=== PATIENT | male | born 1970 | race Caucasian/White ===

== ENCOUNTER 2019-05-15 17:31 | Emergency (ER) | payer BC ==
[2019-05-15] MEDS ORDERED: ONDANSETRON HCL INJ/PF 4 MG/2 ML SDV IV ONE (18:04)
--- NOTE | 2019-05-15 18:06 | ER Document Report ---
ED Medical Screen (RME) - General Chief Complaint: Chest Pain Stated Complaint: CHEST PAIN Time Seen by Provider: 05/15/19 18:01 Mode of Arrival: Wheelchair Information source: Patient Notes: Patient presents complaining of chest pain for the past 2 weeks it worsened today. Patient does complain of difficulty breathing due to the tenderness. Patient also reports nausea and dizziness. Patient denies any cough. Patient took 4 baby aspirins at home before arrival. hx: Hypertension, depression I have greeted and performed a rapid initial assessment of this patient. A comprehensive ED assessment and evaluation of the patient, analysis of test results and completion of the medical decision making process will be conducted by additional ED providers. TRAVEL OUTSIDE OF THE [place] IN LAST 30 DAYS: No - Related Data Allergies/Adverse Reactions: acetaminophen Allergy (Verified 05/15/19 17:33) Past Medical History - Social History Chew tobacco use (# tins/day): No Frequency of alcohol use: Social Renal/ Medical History: Denies: Hx Peritoneal Dialysis Physical Exam - Vital signs Vitals: Temp Pulse Resp BP Pulse Ox 97.9 F 74 18 151/105 H 97 05/15/19 17:43 05/15/19 17:43 05/15/19 17:43 05/15/19 17:43 05/15/19 17:43 - General General appearance: Alert, Anxious Notes: Patient with midsternal tenderness and epigastric pain. Patient with tenderness to epigastric area with palpation. Tenderness increases with inspiration Course - Vital Signs Vital signs: Temp Pulse Resp BP Pulse Ox 97.9 F 74 18 151/105 H 97 05/15/19 17:43 05/15/19 17:43 05/15/19 17:43 05/15/19 17:43 05/15/19 17:43
--- NOTE | 2019-05-15 18:39 | RADIOLOGY REPORT (SQ) ---
EXAM DESCRIPTION: CHEST 2 VIEWS COMPLETED DATE/TIME: 05/15/2019 6:31 pm REASON FOR STUDY: cp COMPARISON: None. EXAM PARAMETERS: NUMBER OF VIEWS: two views TECHNIQUE: Digital Frontal and Lateral radiographic views of the chest acquired. RADIATION DOSE: NA LIMITATIONS: none FINDINGS: LUNGS AND PLEURA: No opacities, masses or pneumothorax. No pleural effusion. MEDIASTINUM AND HILAR STRUCTURES: No masses or contour abnormalities. HEART AND VASCULAR STRUCTURES: Heart normal size. No evidence for failure. BONES: No acute findings. HARDWARE: None in the chest. OTHER: No other significant finding. IMPRESSION: NO ACUTE RADIOGRAPHIC FINDING IN THE CHEST. TECHNICAL DOCUMENTATION: JOB ID: [id number] SPO- All Rights Reserved Reading location - IP/workstation name: [email or web address]
[2019-05-15 19:04] LABS: ABSOLUTE BASOPHILS # (AUTO) 0.1 10^3/uL (0.0-0.2); ABSOLUTE EOSINOPHILS # (AUTO) 0.4 10^3/uL (0.0-0.6); ABSOLUTE MONOCYTES (AUTO) 0.4 10^3/uL (0.1-1.4); ABSOLUTE NEUT (AUTO) 5.2 10^3/uL (1.7-8.2); BASOPHILS % (AUTO) 0.7 % (0-2); EOSINOPHILS % (AUTO) 4.6 % (0-6); HEMATOCRIT 44.4 % (37.9-51.0); HEMOGLOBIN 15.6 g/dL (13.5-17.0); LYMPHOCYTES % (AUTO) 24.4 % (13-45); MEAN CORPUSCULAR HEMOGLOBIN 32.4 pg (27.0-33.4); MEAN CORPUSCULAR HGB CONC 35.2 g/dL (32.0-36.0); MEAN CORPUSCULAR VOLUME 92 fl (80-97); MONOCYTES % (AUTO) 4.9 % (3-13); PLATELET COUNT 341 10^3/uL (150-450); RED BLOOD COUNT 4.83 10^6/uL (4.35-5.55); RED CELL DISTRIBUTION WIDTH 13.4 % (11.5-14.0); SEGMENTED NEUTROPHILS % (AUTO) 65.4 % (42-78); TOTAL CELLS COUNTED % (AUTO) 100 %
--- NOTE | 2019-05-15 19:15 | EKG REPORT ---
SEVERITY:- NORMAL ECG - SINUS RHYTHM : Confirmed by: Aida Prince MD 15-May-2019 19:15:00
[2019-05-15 19:27] LABS: ALANINE AMINOTRANSFERASE 36 U/L (21-72); ALBUMIN 4.1 g/dL (3.5-5.0); ALKALINE PHOSPHATASE 113 U/L (38-126); ANION GAP 7 (5-19); ASPARTATE AMINO TRANSFERASE 32 U/L (17-59); BILIRUBIN,DIRECT 0.3 mg/dL (0.0-0.4); BILIRUBIN,TOTAL 0.7 mg/dL (0.2-1.3); BLOOD UREA NITROGEN 13 mg/dL (7-20); CALCIUM 9.3 mg/dL (8.4-10.2); CARBON DIOXIDE 29 mmol/L (22-30); CHLORIDE 103 mmol/L (98-107); GLUCOSE 101 mg/dL (75-110); LIPASE 127.7 U/L (23-300); POTASSIUM 4.7 mmol/L (3.6-5.0); SODIUM 138.9 mmol/L (137-145)
[2019-05-15] MEDS ORDERED: FAMOTIDINE 20 MG TABLET PO ONE (23:35)
[2019-05-15] MEDS ORDERED: SUCRALFATE 1 GM TABLET PO ONE (23:36)
[2019-05-15] MEDS ORDERED: METOCLOPRAMIDE HCL ORAL SOLN 10 MG/10 ML UDCUP PO ONE (23:36)
[2019-05-15] MEDS ORDERED: LIDOCAINE 2% VISCOUS SOLN 20 ML UDCUP PO ONE (23:36)
[2019-05-15] MEDS ORDERED: MAG HYDROX/AL HYDROX/SIMETH SUSP 30 ML UDCUP PO ONE (23:36)
--- NOTE | 2019-05-15 23:40 | ER Document Report ---
ED General - General Chief Complaint: Chest Pain Stated Complaint: CHEST PAIN Time Seen by Provider: 05/15/19 18:01 Primary Care Provider: STEVE FERMIN MD [Primary Care Provider] - Follow up in 3-5 days Mode of Arrival: Wheelchair Notes: Patient is a 49-year-old male with past medical history of essential hypertension, obesity, presents with complaints of 2 weeks of chest discomfort. Describes it as a constant, throbbing, burning discomfort to his upper abdomen and lower sternal region. Regarded as severe in nature. States that the pain sometimes makes it difficult for him to sleep. Not improved by anything. Has been worsening since onset and eventually the pain prompted him to come to the emergency department this evening. Denies history of similar symptoms prior to the past 2 weeks. Has not seen his primary care doctor regarding today's concerns. Denies history of DVT or pulmonary embolus. Denies any associated shortness of breath or pleuritic discomfort. Intermittent he nauseated. Denies any history of coronary artery disease. Has never had a stress test or cardiac catheterization. TRAVEL OUTSIDE OF THE [place] IN LAST 30 DAYS: No - Related Data Allergies/Adverse Reactions: acetaminophen Allergy (Verified 05/15/19 17:33) Past Medical History - General Information source: Patient - Social History Smoking Status: Never Smoker Chew tobacco use (# tins/day): No Frequency of alcohol use: Social Drug Abuse: None Lives with: Spouse/Significant other Family History: Reviewed & Not Pertinent Patient has suicidal ideation: No Patient has homicidal ideation: No - Past Medical History Cardiac Medical History: Reports: Hx Hypertension Renal/ Medical History: Denies: Hx Peritoneal Dialysis Psychiatric Medical History: Reports: Hx Depression Review of Systems - Review of Systems Notes: Constitutional: Negative for fever. HENT: Negative for sore throat. Eyes: Negative for visual changes. Cardiovascular: Positive for chest pain. Respiratory: Negative for shortness of breath. Gastrointestinal: Positive for upper abdominal pain and nausea Genitourinary: Negative for dysuria. Musculoskeletal: Negative for back pain. Skin: Negative for rash. Neurological: Negative for headaches, weakness or numbness. 10 point ROS negative except as marked above and in HPI. Physical Exam - Vital signs Vitals: Temp Pulse Resp BP Pulse Ox 97.9 F 74 18 151/105 H 97 05/15/19 17:43 05/15/19 17:43 05/15/19 17:43 05/15/19 17:43 05/15/19 17:43 Interpretation: Hypertensive Notes: PHYSICAL EXAMINATION: GENERAL: Well-appearing, well-nourished and in no acute distress. HEAD: Atraumatic, normocephalic. EYES: Pupils equal round and reactive to light, extraocular movements intact, sclera anicteric, conjunctiva are normal. ENT: nares patent, oropharynx clear without exudates. Moist mucous membranes. NECK: Normal range of motion, supple without lymphadenopathy LUNGS: Breath sounds clear to auscultation bilaterally and equal. No wheezes rales or rhonchi. HEART: Regular rate and rhythm without murmurs ABDOMEN: Soft, mild epigastric abdominal tenderness, normoactive bowel sounds. No guarding, no rebound. No masses appreciated. EXTREMITIES: Normal range of motion, no pitting or edema. No cyanosis. NEUROLOGICAL: No focal neurological deficits. Moves all extremities spontaneously and on command. PSYCH: Normal mood, normal affect. SKIN: Warm, Dry, normal turgor, no rashes or lesions noted. Course - Re-evaluation Re-evalutation: 05/15/19 23:39 Presentation of chest pain in an otherwise well appearing patient. Low clinical suspicion for ACS given clinical history, exam, EKG without ST elevations or depressions, and negative initial troponin. Patient has had continuous chest pain for greater than 2 weeks. HEART score less than or equal to 3. PE also seems unlikely given clinical history, absence of tachycardia or dyspnea. Patient is PERC criteria negative. CXR without evidence of pneumothorax or pneumonia. No widened mediastinum. Aortic dissection also seems unlikely given history, symmetric pulses, CXR, and vitals. Delta troponin remains normal. Patient's symptoms may be esophageal in origin as most of his discomfort is re producible on palpation of his epigastrium and he does have significant dietary indiscretions that could contribute to this. I have been clear to emphasize with the patient that this is not a definitive diagnosis but we will empirically treat with famotidine and Carafate to see if this does improve his symptoms. We have also reviewed the need for weight loss as well as a sleep study as patient appears to have obstructive sleep apnea based on characterization of his significant other at the bedside. HEART Score: History0 ECG0 Age1 Risk Factors1 Troponin0 Total: 2 Chest pain in a patient without evidence of cardiac or other serious etiology on workup today. I discussed with patient that, based on their age, risk factors and emergency department testing today, the likelihood that their symptoms are related to a heart attack is very low (estimated risk of heart attack or over the next 30 days of less than 1%). The patient demonstrates decision making capacity and has verbalized an understanding of these risks to me. Based on this, the patient has chosen to follow-up as an outpatient. Usual chest pain return precautions reviewed. The patient states understanding and agreement with this plan. - Vital Signs Vital signs: Temp Pulse Resp BP Pulse Ox 97.9 F 69 13 130/72 H 93 05/15/19 17:43 05/15/19 21:11 05/15/19 23:40 05/15/19 23:40 05/15/19 23:40 - Laboratory Result Diagrams: 05/15/19 17:46 05/15/19 17:46 - Diagnostic Test Radiology reviewed: Image reviewed, Reports reviewed Radiology results interpreted by me: 05/15/19 23:38 Chest x-ray: No acute infiltrate or pneumothorax - EKG Interpretation by Me Additional EKG results interpreted by me: 05/15/19 23:38 Sinus rhythm, rate 77, no ST elevations or depressions. QTC 440. Discharge - Discharge Clinical Impression: Obstructive sleep apnea Chest pain Qualifiers: Chest pain type: unspecified Qualified Code(s): R07.9 - Chest pain, unspecified Obesity Qualifiers: Obesity type: due to excess calories Obesity classification: unspecified obesity classification Serious obesity comorbidity presence: with serious comorbidity Qualified Code(s): E66.09 - Other obesity due to excess calories Condition: Stable Disposition: HOME, SELF-CARE Additional Instructions: You were seen today for chest pain. The exact cause of your pain is unclear. However, based on your cardiac enzyme testing, chest x-ray, and EKG it does not appear that it is from an immediately life-threatening cause at this time. Although your testing here is normal it is important that she follow-up with your primary care physician for consideration of additional testing. Please return to emergency department immediately if you have worsening of your chest pain, shortness of breath, vomiting, become unable to exert yourself due to pain or difficulty breathing, you pass out, or have any pain that radiates into your arms, jaw, or back. Please also return if you have any additional symptoms that are concerning to you. You need to avoid smoking, sodas, tea, coffee, alcohol, spicy foods, and acidic foods such as citrus fruits, tomato based products, berries, and most fruit juices. These are foods that can trigger your stomach and esophagus to become more irritated which may be contributing to your pain. As we discussed today, please strongly consider losing weight. Your obesity will result in a shorter life and serious diagnoses including heart attacks, stroke, diabetes, high blood pressure, high cholesterol, kidney failure, and will also result in a much less enjoyable life due to these chronic conditions. Focus on gradual life style changes including removing sugared beverages and processed foods from your diet and at least 30 minutes of moderate activity daily. Try to target 4-5lbs of weight loss per month. As we discussed you need to have a sleep study as it sounds like you have sleep apnea which is likely contributing to your fatigue and could be contributing to your chest discomfort. Prescriptions: Famotidine 40 mg PO BID #60 tablet Sucralfate [Carafate 1 gm Tablet] 1 gm PO ACHS #120 tablet Referrals: STEVE FERMIN MD [Primary Care Provider] - Follow up in 3-5 days
[2019-05-15 23:50] VITALS: BP 130/72
== END 2019-05-16 00:04 | disposition home or self-care (01) ==
LOC: ER 17:31
DX: R07.9 Chest pain, unspecified (principal); R10.10 Upper abdominal pain, unspecified; R11.0 Nausea; R10.816 Epigastric abdominal tenderness; E66.09 Other obesity due to excess calories; G47.33 Obstructive sleep apnea (adult) (pediatric); I10 Essential (primary) hypertension; Z88.8 Allergy status to other drugs, medicaments and biological substances
CPT/HCPCS: 93005; 99285; 96374; 36415; 83690; 85025; 80053; 84484; 71046; 93010; J3490; J2405